=== PATIENT | male | born 1990 | race Two or more races ===

== ENCOUNTER 2017-08-13 22:10 | Emergency (ER) | payer OTHER ==
[~2017-08-13] VITALS: Ht 167.6 cm; Wt 54.4 kg
[2017-08-13 23:32] VITALS: BP 122/80
[2017-08-13] MEDS ORDERED: KETOROLAC TROMETH 60MG/2ML VIAL IM ONE (23:45)
== END 2017-08-13 23:51 | disposition home or self-care (01) ==
LOC: ER 22:16
DX: K08.89 Other specified disorders of teeth and supporting structures (principal); F17.210 Nicotine dependence, cigarettes, uncomplicated; H92.02 Otalgia, left ear
CPT/HCPCS: 96372; 99283; J1885